=== PATIENT | female | born 1955 | race Caucasian/White ===

== ENCOUNTER 2024-07-26 17:09 | Inpatient (IN) | payer MEDICARE ==
--- NOTE | 2024-07-26 17:47 | ED ---
General Adult HPI - General Chief complaint: Shortness of Breath Stated complaint: CLAUDIA Time Seen by Provider: 07/26/24 17:16 Source: patient Mode of arrival: EMS Limitations: no limitations - History of Present Illness Initial comments: Patient presents to the ED by ambulance for evaluation. Patient was transferred from [facility] ED due to COPD exacerbation and possible CHF. Patient's test results/records were reviewed myself and are pertinent for an elevated troponin, elevated BNP, negative influenza/RSV/COVID, and a chest x- ray that showed "1. No acute focal consolidation or evidence of pneumothorax; 2. Minimal right lung base atelectasis and questionable trace right pleural effusion; and 3. Findings suggestive of COPD.". Patient was treated with albuterol/Atrovent nebs, IV Solu-Medrol, IV Lasix, IV Zofran, IV Rocephin and IV azithromycin at outside hospital ED prior to ambulance transfer. Patient states that she has had increased dyspnea and a productive cough for the past 2 to 3 days. Patient states that her dyspnea has improved with the neb treatments that she was given today. Patient states that she is supposed to be on 2 L of home O2, but she cannot afford it. Patient denies having any pain, fever or chills, headache, chest pain or pressure, hemoptysis, palpitations, dizziness, abdominal pain, nausea/vomiting/diarrhea, bloody or melanotic stool, dysuria or urinary symptoms, decreased urine output, leg or calf swelling or pain, or any other symptoms or complaints. - Related Data Home Medications Medication Instructions Recorded Confirmed Albuterol Sulfate [Albuterol 2 puff INHALATION RT-Q4H 07/26/24 07/26/24 Sulfate Hfa] Escitalopram Oxalate [Lexapro] 10 mg PO HS 07/26/24 07/26/24 Fluticasone/Umeclidin/Vilanter 1 puff INHALATION RT-DAILY 07/26/24 07/26/24 [Trelegy Ellipta 100-62.5-25] HYDROcodone/APAP 7.5-325MG [[place] 1 tab PO TID PRN 07/26/24 07/26/24 7.5-325] Metoprolol Tartrate [Lopressor] 25 mg PO DAILY 07/26/24 07/26/24 busPIRone HCl [Buspar] 5 mg PO TID 07/26/24 07/26/24 lisinopriL [Zestril] 5 mg PO DAILY 07/26/24 07/26/24 predniSONE 40 mg PO DAILY 07/26/24 07/26/24 Allergies Allergy/AdvReac Type Severity Reaction Status Date / Time aspirin AdvReac Nausea & Verified 07/26/24 19:37 Vomiting & Diarrhea Review of Systems ROS Statement: Those systems with pertinent positive or pertinent negative responses have been documented in the HPI. ROS Other: All systems not noted in ROS Statement are negative. Past Medical History Past Medical History: Heart Failure, COPD History of Any Multi-Drug Resistant Organisms: None Reported Past Surgical History: Appendectomy, Section Past Psychological History: No Psychological Hx Reported Smoking Status: Current some day smoker, Former smoker Past Alcohol Use History: None Reported Past Drug Use History: None Reported General Exam Limitations: no limitations General appearance: alert, in no apparent distress Head exam: Present: atraumatic Eye exam: Present: normal appearance ENT exam: Present: mucous membranes moist Neck exam: Present: other (Trachea is in midline) Respiratory exam: Present: normal lung sounds bilaterally, wheezes, decreased breath sounds, prolonged expiratory. Absent: respiratory distress, rales, rhonchi, stridor Cardiovascular Exam: Present: normal rhythm, tachycardia, normal heart sounds, other (Normal radial pulses bilaterally) GI/Abdominal exam: Present: soft. Absent: distended, tenderness, guarding Extremities exam: Present: other (Negative Homans' sign bilaterally). Absent: tenderness, pedal edema, calf tenderness Neurological exam: Present: alert, oriented X3. Absent: motor sensory deficit Psychiatric exam: Present: normal affect Skin exam: Present: warm, dry, normal color Course Vital Signs 07/26/24 07/26/24 07/26/24 17:18 18:02 18:11 Temperature 99.7 F H Pulse Rate 115 H 80 84 Respiratory 22 Rate Blood Pressure 91/65 O2 Sat by Pulse 96 Oximetry 07/26/24 07/26/24 18:31 19:00 Temperature 99.2 F Pulse Rate 100 94 Respiratory 24 23 Rate Blood Pressure 93/54 96/50 O2 Sat by Pulse 97 98 Oximetry - Reevaluation(s) Reevaluation #1: 07/26/24 19:40 Case, H&P, test results and ED/outside hospital ED management were discussed with Dr. Smith. He accepts hospital admission. He has no further recommendations at this time. 07/26/24 19:43 Patient states that her dyspnea has improved with the neb treatments that she has received. Patient denies development of any new symptoms while in the ED. Patient remains alert and breathing comfortably. Patient is aware of her test results, and she agrees with hospital admission at this time. EKG Findings - EKG Comments: EKG Findings:: ED physician interpretation (interpreted by me): Sinus tachycardia, ventricular rate of 111 bpm, no ectopy, normal FL and QRS intervals, normal QT interval, no ST or T wave abnormality Medical Decision Making - Medical Decision Making Was pt. sent in by a medical professional or institution (, PA, CAN CUTTER, urgent care, hospital, or usp...) When possible be specific @ -Yes, patient was transferred from [facility]. Did you speak to anyone other than the patient for history (EMS, parent, family, police, friend...)? What history was obtained from this source @ -History was also obtained from outside hospital transferring physician. Did you review nursing and triage notes (agree or disagree)? Why? @ -I reviewed and agree with nursing and triage notes Were old charts reviewed (outside hosp., previous admission, EMS record, old EKG, old radiological studies, urgent care reports/EKG's, usp records)? Report findings @ -No old charts were reviewed Differential Diagnosis (chest pain, altered mental status, abdominal pain women, abdominal pain men, vaginal bleeding, weakness, fever, dyspnea, syncope, headache, dizziness, GI bleed, back pain, seizure, CVA, palpatations, mental health, musculoskeletal)? @ -Differential Dyspnea: Coronary syndrome, arrhythmia, tamponade, asthma, COPD, CHF, pneumonia, bronchitis, viral illness, pneumothorax, pleural effusion, anemia, neuromuscular, this is not meant to be an all-inclusive list. EKG interpreted by me (3pts min.). @ -As above X-rays interpreted by me (1pt min.). @ -Chest x-ray shows findings consistent with COPD. I agree with the radiologist's interpretation as above. CT interpreted by me (1pt min.). @ -None done U/S interpreted by me (1pt. min.). @ -None done What testing was considered but not performed or refused? (CT, X-rays, U/S, labs)? Why? @ -None What meds were considered but not given or refused? Why? @ -None Did you discuss the management of the patient with other professionals (professionals i.e. , PA, CAN CUTTER, lab, RT, psych nurse, director of social media marketing, trial lawyer, teacher, surveillance sensor officer, director of casework services)? Give summary @ -As above Was smoking cessation discussed for >3mins.? @ -No Was critical care preformed (if so, how long)? @ -Yes, 35 minutes. Were there social determinants of health that impacted care today? How? (Homelessness, low income, unemployed, alcoholism, drug addiction, transporta tion, low edu. Level, literacy, decrease access to med. care, fci, rehab)? @ -No Was there de-escalation of care discussed even if they declined (Discuss DNR or withdrawal of care, Hospice)? DNR status @ -No What co-morbidities impacted this encounter? (DM, HTN, Smoking, COPD, CAD, Cancer, CVA, ARF, Chemo, Hep., AIDS, mental health diagnosis, sleep apnea, morbid obesity)? @ -COPD Was patient admitted / discharged? Hospital course, mention meds given and route, prescriptions, significant lab abnormalities, going to OR and other pertinent info. @ -Patient was treated with neb treatments, IV Solu-Medrol, IV antibiotics and IV Lasix prior to transport to our ED. Patient was also given another neb treatment, as well as a dose of oral aspirin in the ED. Patient's troponin is minimally elevated. Patient is noted to have wheezing on examination, and she has a history of COPD. Patient is also noted to have an elevated BNP, as well as question of pleural effusion on chest x-ray. I suspect that the patient's symptoms are likely due to COPD, and possibly CHF as well. Patient denies dow ving any chest pain. Patient has no acute ischemic findings on EKG. Will admit the patient to the hospital and check serial troponins. Dr. Smith has accepted hospital admission. Patient agrees with this plan. Undiagnosed new problem with uncertain prognosis? @ -No Drug Therapy requiring intensive monitoring for toxicity (Heparin, Nitro, Insulin, Cardizem)? @ -No Were any procedures done? @ -No Diagnosis/symptom? @ -Dyspnea, COPD exacerbation, CHF, elevated troponin Acute, or Chronic, or Acute on Chronic? @ -Default Uncomplicated (without systemic symptoms) or Complicated (systemic symptoms)? @ -Default Side effects of treatment? @ -No Exacerbation, Progression, or Severe Exacerbation? @ -No Poses a threat to life or bodily function? How? (Chest pain, [place], CO, pneumonia, PE, COPD, DKA, ARF, appy, cholecystitis, CVA, Diverticulitis, Homicidal, Suicidal, threat to staff... and all critical care pts) @ -Possibly - Lab Data Result diagrams: 07/26/24 17:58 07/26/24 17:58 Lab Results 07/26/24 07/26/24 07/26/24 Range/Units 17:58 17:58 17:58 WBC 12.4 H (3.8-10.6) k/uL RBC 4.06 (3.80-5.40) m/uL Hgb 13.2 (11.4-16.0) gm/dL Hct 40.7 (34.0-46.0) % MCV 100.0 (80.0-100.0) fL MCH 32.6 (25.0-35.0) pg MCHC 32.6 (31.0-37.0) g/dL RDW 13.0 (11.5-15.5) % Plt Count 372 (150-450) k/uL MPV 6.8 Neutrophils % 95 % Lymphocytes % 3 % Monocytes % 1 % Eosinophils % 1 % Basophils % 0 % Neutrophils # 11.7 H (1.3-7.7) k/uL Lymphocytes # 0.4 L (1.0-4.8) k/uL Monocytes # 0.2 (0-1.0) k/uL Eosinophils # 0.1 (0-0.7) k/uL Basophils # 0.0 (0-0.2) k/uL PT 10.2 (10.0-12.5) sec INR 0.9 (<1.2) APTT 20.4 L (22.0-30.0) sec Sodium 140 (137-145) mmol/L Potassium 4.1 (3.5-5.1) mmol/L Chloride 102 (98-107) mmol/L Carbon Dioxide 26 (22-30) mmol/L Anion Gap 12 mmol/L BUN 19 H (7-17) mg/dL Creatinine 0.71 (0.52-1.04) mg/dL Est GFR (CKD-EPI)AfAm >90 (>60 ml/min/1.73 sqM) Est GFR (CKD-EPI)NonAf 89 (>60 ml/min/1.73 sqM) Glucose 123 H (74-99) mg/dL Calcium 8.9 (8.4-10.2) mg/dL Magnesium 1.6 (1.6-2.3) mg/dL Total Bilirubin 0.5 (0.2-1.3) mg/dL AST 34 (14-36) U/L ALT 27 (4-34) U/L Alkaline Phosphatase 64 (38-126) U/L Troponin I (0.000-0.034) ng/mL NT-Pro-B Natriuret Pep 4690 pg/mL Total Protein 6.4 (6.3-8.2) g/dL Albumin 3.9 (3.5-5.0) g/dL 07/26/24 Range/Units 17:58 WBC (3.8-10.6) k/uL RBC (3.80-5.40) m/uL Hgb (11.4-16.0) gm/dL Hct (34.0-46.0) % MCV (80.0-100.0) fL MCH (25.0-35.0) pg MCHC (31.0-37.0) g/dL RDW (11.5-15.5) % Plt Count (150-450) k/uL MPV Neutrophils % % Lymphocytes % % Monocytes % % Eosinophils % % Basophils % % Neutrophils # (1.3-7.7) k/uL Lymphocytes # (1.0-4.8) k/uL Monocytes # (0-1.0) k/uL Eosinophils # (0-0.7) k/uL Basophils # (0-0.2) k/uL PT (10.0-12.5) sec INR (<1.2) APTT (22.0-30.0) sec Sodium (137-145) mmol/L Potassium (3.5-5.1) mmol/L Chloride (98-107) mmol/L Carbon Dioxide (22-30) mmol/L Anion Gap mmol/L BUN (7-17) mg/dL Creatinine (0.52-1.04) mg/dL Est GFR (CKD-EPI)AfAm (>60 ml/min/1.73 sqM) Est GFR (CKD-EPI)NonAf (>60 ml/min/1.73 sqM) Glucose (74-99) mg/dL Calcium (8.4-10.2) mg/dL Magnesium (1.6-2.3) mg/dL Total Bilirubin (0.2-1.3) mg/dL AST (14-36) U/L ALT (4-34) U/L Alkaline Phosphatase (38-126) U/L Troponin I 0.037 H* (0.000-0.034) ng/mL NT-Pro-B Natriuret Pep pg/mL Total Protein (6.3-8.2) g/dL Albumin (3.5-5.0) g/dL - Radiology Data Chest x-ray: Mild blunting of the right costophrenic sulcus which could reflect trace right pleural effusion versus pleural thickening. Prominence of the interstitial markings which could reflect COPD. Critical Care Time Critical Care Time: Yes Total Critical Care Time: 35 Disposition Clinical Impression: Dyspnea, COPD exacerbation, CHF (congestive heart failure), Elevated troponin Disposition: ADMITTED IP TO THIS [facility] Condition: Stable Is patient prescribed a controlled substance at d/c from ED?: No Referrals: None,Stated [Primary Care Provider] - 1-2 days Time of Disposition: 19:41
[2024-07-26] MEDS: ALBUTEROL NEBULIZED 2.5 MG/3 ML INHALATION STA (18:02)
[2024-07-26 18:06] LABS: Basophils % (A) 0 %; Eosinophils # (A) 0.1 k/uL (0-0.7); Eosinophils % (A) 1 %; HCT 40.7 % (34.0-46.0); HGB 13.2 gm/dL (11.4-16.0); Lymphocytes # (A) 0.4 k/uL (1.0-4.8); Lymphocytes % (A) 3 %; MCH 32.6 pg (25.0-35.0); MCHC 32.6 g/dL (31.0-37.0); Mean Platelet Volume 6.8; Monocytes # (A) 0.2 k/uL (0-1.0); Monocytes % (A) 1 %; Neutrophils # (A) 11.7 k/uL (1.3-7.7); Neutrophils % (A) 95 %; Platelet Count 372 k/uL (150-450); RBC 4.06 m/uL (3.80-5.40); WBC 12.4 k/uL (3.8-10.6)
[2024-07-26 18:21] LABS: INR 0.9 (<1.2); Prothrombin Time 10.2 sec (10.0-12.5)
[2024-07-26 18:26] LABS: ALT 27 U/L (4-34); AST 34 U/L (14-36); African American GFR (CKD) >90 (>60 ml/min/1.73 sqM); Albumin 3.9 g/dL (3.5-5.0); Alkaline Phosphatase 64 U/L (38-126); Anion Gap 12 mmol/L; Blood Urea Nitrogen 19 mg/dL (7-17); Calcium 8.9 mg/dL (8.4-10.2); Carbon Dioxide 26 mmol/L (22-30); Chloride 102 mmol/L (98-107); Glucose 123 mg/dL (74-99); Magnesium 1.6 mg/dL (1.6-2.3); Non-African American GFR(CKD) 89 (>60 ml/min/1.73 sqM); Potassium 4.1 mmol/L (3.5-5.1); Sodium 140 mmol/L (137-145); Total Bilirubin 0.5 mg/dL (0.2-1.3); Total Protein 6.4 g/dL (6.3-8.2)
[2024-07-26 18:33] LABS: NT-Pro-B-Type Natriuretic Pept 4690 pg/mL
--- NOTE | 2024-07-26 18:33 | XR ---
EXAMINATION TYPE: XR chest 1V portable DATE OF EXAM: 07/26/2024 6:23 PM COMPARISON: None available. CLINICAL INDICATION: Female, 69 years old with history of dyspnea; [facility] TECHNIQUE: XR chest 1V portable Frontal view of the chest. FINDINGS: Cardiac silhouette is within normal limits for size. Prominence of the bilateral interstitial markings which is nonspecific. No acute focal consolidation. Mild blunting of the right costophrenic sulcus. No sizable left pleural effusion. PICC line no pneumothorax. No acute osseous abnormality. IMPRESSION: Mild blunting of the right costophrenic sulcus which could reflect trace right pleural effusion versu s pleural thickening. Prominence of the interstitial markings which could reflect COPD. [facility], , 07/26/2024 6:30 PM
[2024-07-26 18:42] LABS: Partial Thromboplastin Time 20.4 sec (22.0-30.0)
[2024-07-26] MEDS: ASPIRIN 81 MG PO STA (19:13)
[2024-07-26] MEDS ORDERED: NALOXONE 0.4 MG/ML 1 ML VIAL IV PRN (19:42)
[2024-07-26] MEDS ORDERED: predniSONE 10 MG TAB PO SCH (22:45)
[2024-07-26] MEDS ORDERED: IPRATROPIUM-ALBUTEROL 3 ML NEB INHALATION PRN (22:56)
[2024-07-26] MEDS: HYDROcodone/APAP 7.5-325MG 1 EACH TAB PO PRN (23:38)
[2024-07-26] MEDS: busPIRone HCl 5 MG TAB PO SCH (23:40)
[2024-07-26] MEDS: ENOXAPARIN 40 MG/0.4 ML SYRINGE SQ SCH (23:41)
[2024-07-26] MEDS: ESCITALOPRAM 10 MG TAB PO SCH (23:41)
--- NOTE | 2024-07-27 01:30 | P.HPIM ---
History of Present Illness H&P Date: 07/26/24 Patient is a 69-year-old female with PMH of COPD not on home oxygen, congestive heart failure is a transfer patient from [facility] emergency department for further evaluation and management for COPD exacerbation and possible congestive heart failure. Patient called EMS after she felt extremely short of breath with some chest tightness this afternoon. Patient was taken to the [facility] where she had received breathing treatments with DuoNebs as well as IV Lasix and IV antibiotics (Rocephin and azithromycin). Patient is feeling a lot better after receiving her breathing treatments. Patient stated that she has been experiencing shortness of breath from past 2 days. It has been getting progressively worse associated cough. Patient states that she has been producing about 2 teaspoonful of clear-colored sputum. She has also been feeling fatigued along with mild fever and chills. She denies sick contact or recent flulike symptoms. Patient has also been using her home medication albuterol inhaler every 2 hours from last couple of days. She is a lso maintained on Trelegy which she takes once daily. Patient has been evaluated by chronometer adjuster in the past who has recommended 2 L of home oxygen. Patient is currently not using oxygen at home because she does not have a coverage through her insurance. Patient denies hospitalization because of COPD exacerbation in the past 12 months. Her last admission due to COPD exacerbation was back in 2020 and she had to be admitted in the ICU (did not get intubated). Patient has also been feeling slightly nauseous but no vomiting so far. She has also been endorsing dizziness since the onset of her symptoms from last 2 days. Dizziness is worse with changing her position especially getting up from sitting position. Patient denies any previous episodes of dizziness. Denies any loss of consciousness or fall or injury to the head. Denies chest discomfort and LE swelling or pain. Patient denies history of CAD/CVA and is currently not on any blood thinner. Denies any recent travel or hospitalization. Denies any swelling of legs recently. Laboratory data: WBC 12.4, hemoglobin 13.2, MCV 100, platelet count 372, PT 10.2, INR 0.9, ABG 10.4, potassium 140, potassium 4.1, chloride 102, bicarb 26, BUN 90, creatinine 0.71, glucose 123, magnesium 1.6, total bili 0.5, AST 34, ALT 27, ALP 64, troponin I 0.037, NT proBNP 4690 Images: Chest x-ray done in the ED interpreted apparently shows trace right pleural effusion with presence of diffuse interstitial markings,consistent with COPD changes. EKG done in the ED interpreted independently shows sinus tachycardia with ventricular rate of 111 bpm. MS interval 142 ms. QRS duration 86 ms. QTc 384 ms. Poor R wave progression noted. Vitals: Vital signs on arrival: Temperature 99.7 F, pulse rate 115, respiratory 22, blood pressure 91/65, oxygen saturation 96% on 4 L via nasal cannula Review of systems: Pertinent positives and negatives as discussed in HPI, a complete review of systems was performed and all other systems are negative. Social history: Tobacco: Former smoker quit 2018. Significant past smoking history. 1 pack/week x 40 years Alcohol: None Recreational drugs: None Travel: None Occupation: None restaurant area manager Family History: Father of lung cancer Physical examination: Vital signs reviewed General: non toxic, no distress, appears older than stated age, underweight Derm: no unusual rashes/lesions, warm Head: atraumatic, normocephalic, symmetric Eyes: EOMI, anicteric sclera, pupils equal round reactive to light ENT: Nose and ears atraumatic Neck: No cervical lymphadenopathy, trachea midline, supple Mouth: no lip lesion, mucus membranes moist Cardiovascular: S1S2 reg, no murmur, positive dorsalis pedis pulse bilateral, no edema Lungs: Diffuse expiratory wheezing wih poor air entry darell, no rhonchi, no rales, no accessory muscle use Abdominal: soft, nontender to palpation, no guarding Ext: muscle strength 5 out of 5 in all 4 extremities grossly, no gross muscle atrophy, no contractures, Neuro: CN II-XI grossly intact, no gross focal neuro deficits Psych: Alert, oriented, appropriate affect Assessment/Plan: Patient is a 69-year-old female with PMH of COPD not on home oxygen, congestive heart failure is a transfer patient from [facility] emergency department who was brought to the [facility] ED for further evaluation and management for COPD exacerbation and possible congestive heart failure. Case was discussed with the Emergency Room provider and decision was made to admit the patient for COPD exacerbation and suspected congestive heart failure. #COPD exacerbation #Acute hypoxemic respiratory failure Patient received a dose of IV Solu-Medrol prior to transfer Resume home Prednisone 40mg po daily DuoNebs scheduled and [id number] Continue with oxygen therapy as needed with a goal of keeping SpO2 between 88 to 92% Ordered ABG Patient received dose of iv Rocephin and azithromycin at [facility] ED Patient does not require antibiotic at this time, low suspicion for infection Order procalcitonin Continue to monitor CBC and correlate with clinical findings #History of congestive heart failure, patient not in exacerbation No previous report of echocardiogram Patient received dose of Lasix before presenting here Continue cardiac telemetry Resume metoprolol 25 mg p.o. 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 at bedtime and buspirone 5 mg p.o. 3 times daily DVT prophylaxis: Lovenox subcu 40 mg GI prophylaxis: None F: None E: Replete as needed N: Heart healthy diet A: Patient ambulatory at baseline The patient is admitted with an anticipated less than than 2 midnight stay for evaluation of COPD exacerbation CODE STATUS: Full code Discussed with: Patient Anticipated discharge place: Pending clinical course Dictation was produced using [employer] dictation software. Please excuse any grammatical, word or spelling errors. Past Medical History Past Medical History: Heart Failure, COPD History of Any Multi-Drug Resistant Organisms: None Reported Past Surgical History: Appendectomy, Section Past Psychological History: No Psychological Hx Reported Smoking Status: Current some day smoker, Former smoker Past Alcohol Use History: None Reported Past Drug Use History: None Reported Medications and Allergies Home Medications Medication Instructions Recorded Confirmed Type Albuterol Sulfate [Albuterol 2 puff INHALATION RT-Q4H 07/26/24 07/26/24 History Sulfate Hfa] Escitalopram Oxalate [Lexapro] 10 mg PO HS 07/26/24 07/26/24 History Fluticasone/Umeclidin/Vilanter 1 puff INHALATION RT-DAILY 07/26/24 07/26/24 History [Trelegy Ellipta 100-62.5-25] HYDROcodone/APAP 7.5-325MG [[place] 1 tab PO TID PRN 07/26/24 07/26/24 History 7.5-325] Metoprolol Tartrate [Lopressor] 25 mg PO DAILY 07/26/24 07/26/24 History busPIRone HCl [Buspar] 5 mg PO TID 07/26/24 07/26/24 History lisinopriL [Zestril] 5 mg PO DAILY 07/26/24 07/26/24 History predniSONE 40 mg PO DAILY 07/26/24 07/26/24 History Allergies Allergy/AdvReac Type Severity Reaction Status Date / Time aspirin AdvReac Nausea & Verified 07/26/24 19:37 Vomiting & Diarrhea Physical Exam Vitals: Vital Signs Temp Pulse Resp BP Pulse Ox 07/26/24 21:00 98.9 F 96 20 100/58 97 07/26/24 19:00 94 23 96/50 98 07/26/24 18:31 99.2 F 100 24 93/54 97 07/26/24 18:11 84 07/26/24 18:02 80 07/26/24 17:18 99.7 F H 115 H 22 91/65 96 Intake and Output 07/26/24 07/26/24 07/26/24 06:59 14:59 22:59 Other: Weight 51.71 kg Results CBC & Chem 7: 07/26/24 17:58 07/26/24 17:58 Labs: Abnormal Lab Results - Last 24 Hours (Table) 07/26/24 07/26/24 07/26/24 Range/Units 17:58 17:58 17:58 WBC 12.4 H (3.8-10.6) k/uL Neutrophils # 11.7 H (1.3-7.7) k/uL Lymphocytes # 0.4 L (1.0-4.8) k/uL APTT 20.4 L (22.0-30.0) sec BUN 19 H (7-17) mg/dL Glucose 123 H (74-99) mg/dL Troponin I (0.000-0.034) ng/mL 07/26/24 Range/Units 17:58 WBC (3.8-10.6) k/uL Neutrophils # (1.3-7.7) k/uL Lymphocytes # (1.0-4.8) k/uL APTT (22.0-30.0) sec BUN (7-17) mg/dL Glucose (74-99) mg/dL Troponin I 0.037 H* (0.000-0.034) ng/mL
[2024-07-27 06:17] LABS: Basophils % (A) 0 %; Eosinophils % (A) 0 %; HCT 40.4 % (34.0-46.0); HGB 13.1 gm/dL (11.4-16.0); Lymphocytes # (A) 0.9 k/uL (1.0-4.8); Lymphocytes % (A) 9 %; MCH 32.5 pg (25.0-35.0); MCHC 32.4 g/dL (31.0-37.0); MCV 100.1 fL (80.0-100.0); Mean Platelet Volume 6.7; Monocytes # (A) 0.5 k/uL (0-1.0); Monocytes % (A) 5 %; Neutrophils # (A) 8.3 k/uL (1.3-7.7); Neutrophils % (A) 85 %; Platelet Count 389 k/uL (150-450); RBC 4.04 m/uL (3.80-5.40); WBC 9.8 k/uL (3.8-10.6)
[2024-07-27 07:15] LABS: Glucose,Whole Blood 109 mg/dL (70-110)
[2024-07-27] MEDS: INSULIN ASPART (NovoLOG) 100 UNIT/ML VIAL SQ SCH (07:15)
[2024-07-27 08:04] LABS: ALT 32 U/L (4-34); AST 35 U/L (14-36); African American GFR (CKD) >90 (>60 ml/min/1.73 sqM); Albumin 3.9 g/dL (3.5-5.0); Alkaline Phosphatase 64 U/L (38-126); Anion Gap 7 mmol/L; Blood Urea Nitrogen 22 mg/dL (7-17); Calcium 9.3 mg/dL (8.4-10.2); Carbon Dioxide 31 mmol/L (22-30); Chloride 98 mmol/L (98-107); Glucose 102 mg/dL (74-99); Non-African American GFR(CKD) 88 (>60 ml/min/1.73 sqM); Potassium 4.9 mmol/L (3.5-5.1); Sodium 136 mmol/L (137-145); Total Bilirubin 0.4 mg/dL (0.2-1.3); Total Protein 6.5 g/dL (6.3-8.2)
[2024-07-27] MEDS: IPRATROPIUM-ALBUTEROL 3 ML NEB INHALATION SCH ×2 (08:08→20:41)
[2024-07-27] MEDS: METOPROLOL TARTRATE 25 MG TAB PO SCH (08:50)
[2024-07-27] MEDS: predniSONE 20 MG TAB PO SCH (08:50)
[2024-07-27 11:38] LABS: Glucose,Whole Blood 116 mg/dL (70-110)
--- NOTE | 2024-07-27 13:34 | P.PN ---
Subjective Progress Note Date: 07/27/24 Hospital Course: Patient is a 69-year-old female with PMH of COPD not on home oxygen, congestive heart failure is a transfer patient from [facility] emergency department for further evaluation and management for COPD exacerbation and possible congestive heart failure. Patient called EMS after she felt extremely short of breath with some chest tightness this afternoon. Patient was taken to the [facility] where she had received breathing tr eatments with DuoNebs as well as IV Lasix and IV antibiotics (Rocephin and azithromycin). Patient is feeling a lot better after receiving her breathing treatments. Patient stated that she has been experiencing shortness of breath from past 2 days. It has been getting progressively worse associated cough. Patient states that she has been producing about 2 teaspoonful of clear-colored sputum. She has also been feeling fatigued along with mild fever and chills. She denies sick contact or recent flulike symptoms. Patient has also been using her home medication albuterol inhaler every 2 hours from last couple of days. She is also maintained on Trelegy which she takes once daily. Patient has been evaluated by transplanter in the past who has recommended 2 L of home oxygen. Patient is currently not using oxygen at home because she does not have a coverage through her insurance. Patient denies hospitalization because of COPD exacerbation in the past 12 month s. Her last admission due to COPD exacerbation was back in 2020 and she had to be admitted in the ICU (did not get intubated). Patient has also been feeling slightly nauseous but no vomiting so far. She has also been endorsing dizziness since the onset of her symptoms from last 2 days. Dizziness is worse with changing her position especially getting up from sitting position. Patient denies any previous episodes of dizziness. Denies any loss of consciousness or fall or injury to the head. Denies chest discomfort and LE swelling or pain. Patient denies history of CAD/CVA and is currently not on any blood thinner. Denies any recent travel or hospitalization. Denies any swelling of legs recently. Laboratory data: WBC 12.4, hemoglobin 13.2, MCV 100, platelet count 372, PT 10.2, INR 0.9, ABG 10.4, potassium 140, potassium 4.1, chloride 102, bicarb 26, BUN 90, creatinine 0.71, glucose 123, magnesium 1.6, total bili 0.5, AST 34, ALT 27, ALP 64, troponin I 0.037, NT proBNP 4690 Images: Chest x-ray done in the ED interpreted apparently shows trace right pleural effusion with presence of diffuse interstitial markings, consistent with COPD changes. EKG done in the ED interpreted independently shows sinus tachycardia with ventricular rate of 111 bpm. CA interval 142 ms. QRS duration 86 ms. QTc 384 ms. Poor R wave progression noted. Vitals: Vital signs on arrival: Temperature 99.7 F, pulse rate 115, respiratory 22, blood pressure 91/65, oxygen saturation 96% on 4 L via nasal cannula Subjective: Patient seen and examined at bedside. No acute events overnight. Pertinent positives and negatives as discussed above, a complete review of systems was performed and all other systems are negative. Vitals: Signs Reviewed Physical Exam: General: nontoxic, no distress, appears at stated age Derm: warm, dry, intact Head: atraumatic, normocephalic, symmetric Eyes: EOMI, anicteric sclera Mouth: no lip lesion, mucus membranes moist Cardiovascular: S1 S2 reg, no murmur, rubs, or gallops Lungs: diffuse expiratory wheezing b/l, no rhonchi, no rales, no accessory muscle use Abdominal: soft, non-tender to palpataion, no appreciable organomegaly Extremities: no gross muscle atrophy, no edema, no contractures Neuro: Alert, Oriented, CNII-XII grossly intact, gait normal Psych: well appearing, appropriate affect Data Received Today: Pertinent Labs: WBC 9.8, Hgb 13.1, sodium 136, carbon dioxide 31, BUN 22, creatinine 0.72, glucose 102 Imaging: echo pending Assessment and Plan: Patient is a 69-year-old female with PMH of COPD not on home oxygen, congestive heart failure is a transfer patient from [facility] emergency department who was brought to the [facility] ED for further evaluation and management f or COPD exacerbation and possible congestive heart failure. Case was discussed with the Emergency Room provider and decision was made to admit the patient for COPD exacerbation and suspected congestive heart failure. #COPD exacerbation #Acute hypoxemic respiratory failure Patient received a dose of IV Solu-Medrol prior to transfer Resume home Prednisone 40mg po daily (day 2) On 4L Wean down 02 DuoNebs scheduled and [id number] Continue with oxygen therapy as needed with a goal of keeping SpO2 between 88 to 92% Ordered ABG, pt denied Patient received dose of iv Rocephin and azithromycin at [facility] ED Patient does not require antibiotic at this time, low suspicion for infection procalcitonin 0.19 negative influenza/RSV/COVID before transferring from [facility] Continue to monitor CBC and correlate with clinical findings #History of congestive heart failure, patient not in exacerbation No previous report of echocardiogram Patient received dose of Lasix before presenting here Continue cardiac telemetry Resume metoprolol 25 mg p.o. daily Echocardiogram pending #Type II [place] secondary to COPD exacerbation Troponin trending down from 0.037 ---> 0.030 Continue to trend troponin #Leukocytosis likely reactive to COPD exacerbation WBC 12.4 Continue monitor CBC #Hyperglycemia Serum glucose 123 Accu-Cheks insulin scale insulin Order HbA1c Chronic conditions: Hypertension: Resume lisinopril when SBP >110, hold for now Anxiety: Resume Lexapro 10 mg p.o. at bedtime and buspirone 5 mg p.o. 3 times daily DVT prophylaxis: Lovenox subcu 40 mg GI prophylaxis: None F: None E: Replete as needed N: Heart healthy diet A: Patient ambulatory at baseline DVT ppx: Lovenox 40 SQ daily Code status: FULL CODE Anticipated discharge place: Pending Clinical Course Anticipated discharge time: Pending Clinical Course Storm Reich MD PGY-1 IM Dictation was produced using [employer] dictation software. please excuse any grammatical, word or spelling errors. I saw and evaluated the patient during the leiva and critical portions of this encounter, and discussed the case in detail with the resident author of this n ote, I agree with the Assessment and Plan, and my changes, if any, are highlighted in blue. Objective - Vital Signs Vital signs: Vital Signs Temp 98.9 F 07/26/24 23:00 Pulse 99 07/27/24 03:30 Resp 18 07/27/24 03:30 BP 99/66 07/27/24 03:30 Pulse Ox 99 07/27/24 03:30 FiO2 Intake & Output 07/26/24 07/26/24 07/27/24 06:59 18:59 06:59 Weight 51.71 kg - Labs CBC & Chem 7: 07/27/24 05:58 07/27/24 05:58 Labs: Abnormal Lab Results - Last 24 Hours (Table) 07/26/24 07/26/24 07/26/24 Range/Units 17:58 17:58 17:58 WBC 12.4 H (3.8-10.6) k/uL Neutrophils # 11.7 H (1.3-7.7) k/uL Lymphocytes # 0.4 L (1.0-4.8) k/uL APTT 20.4 L (22.0-30.0) sec BUN 19 H (7-17) mg/dL Glucose 123 H (74-99) mg/dL Troponin I (0.000-0.034) ng/mL 07/26/24 Range/Units 17:58 WBC (3.8-10.6) k/uL Neutrophils # (1.3-7.7) k/uL Lymphocytes # (1.0-4.8) k/uL APTT (22.0-30.0) sec BUN (7-17) mg/dL Glucose (74-99) mg/dL Troponin I 0.037 H* (0.000-0.034) ng/mL
[2024-07-27] MEDS ORDERED: ALBUTEROL NEB (CONC) 2.5 MG/0.5 ML INHALATION PRN (16:12)
[2024-07-27 16:36] LABS: Glucose,Whole Blood 130 mg/dL (70-110)
[2024-07-27 20:20] LABS: Glucose,Whole Blood 116 mg/dL (70-110)
[2024-07-28 04:57] LABS: Basophils % (A) 0 %; Eosinophils % (A) 0 %; HCT 36.2 % (34.0-46.0); HGB 11.8 gm/dL (11.4-16.0); Lymphocytes # (A) 1.7 k/uL (1.0-4.8); Lymphocytes % (A) 19 %; MCH 32.4 pg (25.0-35.0); MCHC 32.5 g/dL (31.0-37.0); MCV 99.5 fL (80.0-100.0); Mean Platelet Volume 7.8; Monocytes # (A) 0.7 k/uL (0-1.0); Monocytes % (A) 8 %; Neutrophils # (A) 6.4 k/uL (1.3-7.7); Neutrophils % (A) 71 %; Platelet Count 407 k/uL (150-450); RBC 3.63 m/uL (3.80-5.40); RDW 13.2 % (11.5-15.5); WBC 8.9 k/uL (3.8-10.6)
[2024-07-28 06:16] LABS: ALT 37 U/L (4-34); AST 40 U/L (14-36); African American GFR (CKD) >90 (>60 ml/min/1.73 sqM); Albumin 3.5 g/dL (3.5-5.0); Albumin/Globulin Ratio 1.5; Alkaline Phosphatase 54 U/L (38-126); Anion Gap 4 mmol/L; Blood Urea Nitrogen 23 mg/dL (7-17); Carbon Dioxide 32 mmol/L (22-30); Chloride 97 mmol/L (98-107); Globulin 2.4 g/dL; Glucose 93 mg/dL (74-99); Non-African American GFR(CKD) 82 (>60 ml/min/1.73 sqM); Potassium 4.4 mmol/L (3.5-5.1); Sodium 133 mmol/L (137-145); Total Bilirubin 0.3 mg/dL (0.2-1.3); Total Protein 5.9 g/dL (6.3-8.2)
[2024-07-28 06:24] LABS: Glucose,Whole Blood 91 mg/dL (70-110)
[2024-07-28] MEDS: IBUPROFEN 800 MG TAB PO PRN (09:19)
[2024-07-28 11:51] LABS: Glucose,Whole Blood 100 mg/dL (70-110)
--- NOTE | 2024-07-28 13:27 | CA ---
Transthoracic Echo Report Name: Daniella Pereira Age: 69 Gender: F : 1955 Exam Date: 07/28/2024 10:25 Exam Location: [facility] Ht (in): 66 Wt (lb): 114 Ordering Physician: Francisco Javier Gonzales MD Attending/Referring Phys: Bow Repairer [employer] Karen Duff, TERRY Procedure CPT: Indications: Hx of CHF Cardiac Hx: limited study due to pt refused Technical Quality: Fair, Very technically difficult study, pt refused Contrast 1: Total Dose (mL): Contrast 2: Total Dose (mL): MEASUREMENTS (Male / Female) Normal Values 2D ECHO LV Diastolic Diameter PLAX 4.7 cm 4.2 - 5.9 / 3.9 - 5.3 cm LV Systolic Diameter PLAX 3.7 cm IVS Diastolic Thickness 1.1 cm 0.6 - 1.0 / 0.6 - 0.9 cm LVPW Diastolic Thickness 0.9 cm 0.6 - 1.0 / 0.6 - 0.9 cm LV Relative Wall Thickness 0.4 RV Internal Dim ED PLAX 3.2 cm LVOT Diameter 1.6 cm Aortic Root Diameter 3.0 cm LA Systolic Diameter LX 2.4 cm 3.0 - 4.0 / 2.7 - 3.8 cm FINDINGS Left Ventricle Left ventricular ejection fraction is estimated at 35-40 %. Mildly increased septal wall thickness. Right Ventricle Right Atrium Left Atrium Normal left atrial size. Mitral Valve Aortic Valve Tricuspid Valve Pulmonic Valve Pericardium Aorta Normal size aortic root and proximal ascending aorta. CONCLUSIONS Limited study patient was not cooperative apparently she asked the accounting technician to stop scanning. Ejection fraction is about 40% on available views which are mostly parasternal long axis views. Cannot infer much from the study Previewed by: Dr. Louie Jacobs MD (Electronically Signed) Final Date: 28 July 2024 13:26
[2024-07-28 15:02] VITALS: BMI 17.8
[2024-07-28 16:47] LABS: Glucose,Whole Blood 126 mg/dL (70-110)
--- NOTE | 2024-07-28 17:24 | P.PN ---
Subjective Progress Note Date: 07/28/24 Hospital Course: Patient is a 69-year-old female with PMH of COPD not on home oxygen, congestive heart failure is a transfer patient from [facility] emergency department for further evaluation and management for COPD exacerbation and possible congestive heart failure. Patient called EMS after she felt extremely short of breath with some chest tightness this afternoon. Patient was taken to the [facility] where she had received breathing tr eatments with DuoNebs as well as IV Lasix and IV antibiotics (Rocephin and azithromycin). Patient is feeling a lot better after receiving her breathing treatments. Patient stated that she has been experiencing shortness of breath from past 2 days. It has been getting progressively worse associated cough. Patient states that she has been producing about 2 teaspoonful of clear-colored sputum. She has also been feeling fatigued along with mild fever and chills. She denies sick contact or recent flulike symptoms. Patient has also been using her home medication albuterol inhaler every 2 hours from last couple of days. She is also maintained on Trelegy which she takes once daily. Patient has been evaluated by crisis worker in the past who has recommended 2 L of home oxygen. Patient is currently not using oxygen at home because she does not have a coverage through her insurance. Patient denies hospitalization because of COPD exacerbation in the past 12 month s. Her last admission due to COPD exacerbation was back in 2020 and she had to be admitted in the ICU (did not get intubated). Patient has also been feeling slightly nauseous but no vomiting so far. She has also been endorsing dizziness since the onset of her symptoms from last 2 days. Dizziness is worse with changing her position especially getting up from sitting position. Patient denies any previous episodes of dizziness. Denies any loss of consciousness or fall or injury to the head. Denies chest discomfort and LE swelling or pain. Patient denies history of CAD/CVA and is currently not on any blood thinner. Denies any recent travel or hospitalization. Denies any swelling of legs recently. Laboratory data: WBC 12.4, hemoglobin 13.2, MCV 100, platelet count 372, PT 10.2, INR 0.9, ABG 10.4, potassium 140, potassium 4.1, chloride 102, bicarb 26, BUN 90, creatinine 0.71, glucose 123, magnesium 1.6, total bili 0.5, AST 34, ALT 27, ALP 64, troponin I 0.037, NT proBNP 4690 Images: Chest x-ray done in the ED interpreted apparently shows trace right pleural effusion with presence of diffuse interstitial markings, consistent with COPD changes. EKG done in the ED interpreted independently shows sinus tachycardia with ventricular rate of 111 bpm. AK interval 142 ms. QRS duration 86 ms. QTc 384 ms. Poor R wave progression noted. Vitals: Vital signs on arrival: Temperature 99.7 F, pulse rate 115, respiratory 22, blood pressure 91/65, oxygen saturation 96% on 4 L via nasal cannula Subjective: Patient seen and examined at bedside. No acute events overnight. Patient reports of a headache. She states she is ready to go home. Pertinent positives and negatives as discussed above, a complete review of systems was performed and all other systems are negative. Vitals: Signs Reviewed Physical Exam: General: nontoxic, no distress, appears at stated age Derm: warm, dry, intact Head: atraumatic, normocephalic, symmetric Eyes: EOMI, anicteric sclera Mouth: no lip lesion, mucus membranes moist Cardiovascular: S1 S2 reg, no murmur, rubs, or gallops Lungs: Mild diffuse expiratory wheezing b/l, no rhonchi, no rales, no accessory muscle use Abdominal: soft, non-tender to palpataion, no appreciable organomegaly Extremities: no gross muscle atrophy, no edema, no contractures Neuro: Alert, Oriented, CNII-XII grossly intact, gait normal Psych: well appearing, appropriate affect Data Received Today: Pertinent Labs: WBC 9.8, Hgb 13.1, sodium 136, carbon dioxide 31, BUN 22, creatinine 0.72, glucose 102 Imaging: echo pending Assessment and Plan: Patient is a 69-year-old female with PMH of COPD not on home oxygen, congestive heart failure is a transfer patient from [facility] emergency department who was brought to the [facility] ED for further evaluation and management for COPD exacerbation and possible congestive heart failure. #COPD exacerbation #Acute hypoxemic respiratory failure Patient received a dose of IV Solu-Medrol prior to transfer Resume home Prednisone 40mg po daily (day 3) On 4L Wean down 02 DuoNebs scheduled and [id number] Patient was on 4 L nasal cannula this morning, try to wean down on 2. Continue with oxygen therapy as needed with a goal of keeping SpO2 between 88 to 92% Ordered ABG, pt denied Patient received dose of iv Rocephin and azithromycin at [facility] ED Patient does not require antibiotic at this time, low suspicion for infection procalcitonin 0.19 negative influenza/RSV/COVID before transferring from [facility] Continue to monitor CBC and correlate with clinical findings Discussed with community case manager regarding home O2 status, patient in fact does have home oxygen #History of congestive heart failure, patient not in exacerbation No previous report of echocardiogram Patient received dose of Lasix before presenting here Continue cardiac telemetry Resume metoprolol 25 mg p.o. daily Echocardiogram pending #Type II [place] secondary to COPD exacerbation Troponin trending down from 0.037 ---> 0.030 Continue to trend troponin #Leukocytosis likely reactive to COPD exacerbation WBC 12.4 Continue monitor CBC #Hyperglycemia Serum glucose 123 Accu-Cheks insulin scale insulin Order HbA1c Chronic conditions: Hypertension: Resume lisinopril when SBP >110, hold for now Anxiety: Resume Lexapro 10 mg p.o. at bedtime and buspirone 5 mg p.o. 3 times daily DVT prophylaxis: Lovenox subcu 40 mg GI prophylaxis: None F: None E: Replete as needed N: Heart healthy diet A: Patient ambulatory at baseline DVT ppx: Lovenox 40 SQ daily Code status: FULL CODE Anticipated discharge place: Home Anticipated discharge time: Likely tomorrow Storm Reich MD PGY-1 IM Dictation was produced using [employer] dictation software. please excuse any grammatical, word or spelling errors. I saw and evaluated the patient during the leiva and critical portions of this encounter, and discussed the case in detail with the resident author of this note, I agree with the Assessment and Plan, and my changes, if any, are highlighted in blue. Objective - Vital Signs Vital signs: Vital Signs Temp 98.3 F 07/28/24 13:00 Pulse 95 07/28/24 16:56 Resp 17 07/28/24 13:00 BP 111/70 07/28/24 13:00 Pulse Ox 97 07/28/24 13:00 FiO2 Intake & Output 07/27/24 07/28/24 07/28/24 18:59 06:59 18:59 Intake Total 600 Balance 600 Weight 51.71 kg 50 kg 50 kg Intake: Oral 600 Other: # Voids 2 3 - Labs CBC & Chem 7: 07/28/24 03:05 07/28/24 03:05 Labs: Abnormal Lab Results - Last 24 Hours (Table) 07/27/24 07/28/24 07/28/24 Range/Units 20:19 03:05 03:05 RBC 3.63 L (3.80-5.40) m/uL Sodium 133 L (137-145) mmol/L Chloride 97 L (98-107) mmol/L Carbon Dioxide 32 H (22-30) mmol/L BUN 23 H (7-17) mg/dL POC Glucose (mg/dL) 116 H (70-110) mg/dL AST 40 H (14-36) U/L ALT 37 H (4-34) U/L Total Protein 5.9 L (6.3-8.2) g/dL 07/28/24 Range/Units 16:46 RBC (3.80-5.40) m/uL Sodium (137-145) mmol/L Chloride (98-107) mmol/L Carbon Dioxide (22-30) mmol/L BUN (7-17) mg/dL POC Glucose (mg/dL) 126 H (70-110) mg/dL AST (14-36) U/L ALT (4-34) U/L Total Protein (6.3-8.2) g/dL
[2024-07-28] MEDS ORDERED: ALBUTEROL NEBULIZED 2.5 MG/3 ML INHALATION PRN (20:01)
[2024-07-28 21:04] LABS: Glucose,Whole Blood 139 mg/dL (70-110)
[2024-07-29 06:33] LABS: Glucose,Whole Blood 81 mg/dL (70-110)
[2024-07-29 07:43] LABS: Basophils % (A) 0 %; Eosinophils # (A) 0.1 k/uL (0-0.7); Eosinophils % (A) 1 %; HCT 39.7 % (34.0-46.0); HGB 12.4 gm/dL (11.4-16.0); Hypochromasia Slight; Lymphocytes # (A) 2.1 k/uL (1.0-4.8); Lymphocytes % (A) 22 %; MCH 31.6 pg (25.0-35.0); MCHC 31.3 g/dL (31.0-37.0); Mean Platelet Volume 6.5; Monocytes # (A) 0.6 k/uL (0-1.0); Monocytes % (A) 6 %; Neutrophils # (A) 6.8 k/uL (1.3-7.7); Neutrophils % (A) 69 %; Platelet Count 434 k/uL (150-450); RBC 3.93 m/uL (3.80-5.40); RDW 12.6 % (11.5-15.5); WBC 9.9 k/uL (3.8-10.6)
[2024-07-29 07:49] VITALS: RESP 19; TEMP 97.9
[2024-07-29 07:52] LABS: ALT 47 U/L (4-34); AST 43 U/L (14-36); African American GFR (CKD) >90 (>60 ml/min/1.73 sqM); Albumin 3.7 g/dL (3.5-5.0); Albumin/Globulin Ratio 1.5; Alkaline Phosphatase 52 U/L (38-126); Anion Gap 3 mmol/L; Blood Urea Nitrogen 23 mg/dL (7-17); Calcium 9.4 mg/dL (8.4-10.2); Carbon Dioxide 39 mmol/L (22-30); Chloride 95 mmol/L (98-107); Globulin 2.4 g/dL; Glucose 91 mg/dL (74-99); Magnesium 2.2 mg/dL (1.6-2.3); Non-African American GFR(CKD) 85 (>60 ml/min/1.73 sqM); Potassium 4.4 mmol/L (3.5-5.1); Sodium 137 mmol/L (137-145); Total Bilirubin 0.4 mg/dL (0.2-1.3); Total Protein 6.1 g/dL (6.3-8.2)
[2024-07-29 09:15] VITALS: BP 105/57; PULSE 101
[2024-07-29 11:20] LABS: Glucose,Whole Blood 98 mg/dL (70-110)
--- NOTE | 2024-07-29 14:03 | P.DS ---
Providers Date of admission: 07/26/24 19:43 Discharge Diagnosis: Acute exacerbation of COPD Acute hypoxic respiratory failure History of cysts CHF, not in exacerbation Type II NSTEMI secondary to COPD exacerbation Leukocytosis Hyperglycemia Hypertension Anxiety Hospital Course: Patient is a 69-year-old female with PMH of COPD not on home oxygen, congestive heart failure is a transfer patient from [facility] emergency department for further evaluation and management for COPD exacerbation and possible congestive heart failure. Patient called EMS after she felt extremely short of breath with some chest tightness this afternoon. Patient was taken to the [facility] where she had received breathing treatments with DuoNebs as well as IV Lasix and IV antibiotics (Rocephin and azithromycin). Patient is feeling a lot better after receiving her breathing treatments. Patient stated that she has been experiencing shortness of breath from past 2 days. It has been getting progressively worse associated cough. Patient states that she has been producing about 2 teaspoonful of clear-colored sputum. She has also been feeling fatigued along with mild fever and chills. She denies sick contact or recent flulike symptoms. Patient has also been using her home medication albuterol inhaler every 2 hours from last couple of days. She is also maintained on Trelegy which she takes once daily. Patient has been evaluated by hooker off in the past who has recommended 2 L of home oxygen. Patient is currently not using oxygen at home because she does not have a coverage through her insurance. Patient denies hospitalization because of COPD exacerbation in the past 12 months. Her last admission due to COPD exacerbation was back in 2020 and she had to be admitted in the ICU (did not get intubated). Patient has also been feeling slightly nauseous but no vomiting so far. She has also been endorsing dizziness since the onset of her symptoms from last 2 days. Dizziness is worse with changing her position especially getting up from sitting position. Patient denies any previous episodes of dizziness. Denies any loss of consciousness or fall or injury to the head. Denies chest discomfort and LE swelling or pain. Patient denies history of CAD/CVA and is currently not on any blood thinner. Denies any recent travel or hospitalization. Denies any swelling of legs recently. Laboratory data: WBC 12.4, hemoglobin 13.2, MCV 100, platelet count 372, PT 10.2, INR 0.9, ABG 10.4, potassium 140, potassium 4.1, chloride 102, bicarb 26, BUN 90, creatinine 0.71, glucose 123, magnesium 1.6, total bili 0.5, AST 34, ALT 27, ALP 64, troponin I 0.037, NT proBNP 4690 Images: Chest x-ray done in the ED interpreted apparently shows trace right pleural effusion with presence of diffuse interstitial markings, consistent with COPD changes. EKG done in the ED interpreted independently shows sinus tachycardia with ventricular rate of 111 bpm. [place] interval 142 ms. QRS duration 86 ms. QTc 384 ms. Poor R wave progression noted. Patient was admitted to internal medicine service for further evaluation for acute exacerbation of COPD. While admitted patient was on proper breathing treatment for her exacerbation. Was given steroids to better control her symptoms. She will be sent home with 2 L home oxygen. Patient's breathing has improved significantly. Patient discharged oral steroids to finish off course. Patient is to follow-up with PCP. Patient be discharged home. Vital signs reviewed and stable. Physical examination: Vital signs reviewed General: non toxic, no distress, appears at stated age, normal weight Derm: no unusual rashes/lesions, warm Head: atraumatic, normocephalic, symmetric Eyes: EOMI, anicteric sclera, pupils equal round reactive to light ENT: Nose and ears atraumatic Neck: No cervical lymphadenopathy, trachea midline, supple Mouth: no lip lesion, mucus membranes moist Cardiovascular: S1S2 reg, no murmur, positive dorsalis pedis pulse bilateral, no edema Lungs: Mild end expiratory wheezing bilaterally, no rhonchi, no rales, no accessory muscle use Abdominal: soft, nontender to palpation, no guarding Ext: muscle strength 5 out of 5 in all 4 extremities grossly, no gross muscle atrophy Neuro: CN II-XI grossly intact, no gross focal neuro deficits Psych: Alert, oriented to person, place, and time A total of greater than 30 minutes of time were spent preparing this complex discharge summary. Patient was discharge on July 29, 2024 at 11:19. Storm Reich MD PGY-1 IM I saw and evaluated the patient during the leiva and critical portions of this encounter, and discussed the case in detail with the resident author of this note, I agree with the Assessment and Plan, and my changes, if any, are highlighted in blue. Attending physician: Topher Smith MD Primary care physician: BUCK Henao Patient Condition at Discharge: Stable Plan - Discharge Summary Discharge Rx Participant: No New Discharge Prescriptions: New predniSONE [Deltasone] 40 mg PO DAILY 2 Days #4 tab Continue busPIRone HCl [Buspar] 5 mg PO TID Fluticasone/Umeclidin/Vilanter [Trelegy Ellipta 100-62.5-25] 1 puff INHALATION RT-DAILY HYDROcodone/APAP 7.5-325MG [[place] 7.5-325] 1 tab PO TID PRN PRN Reason: Pain lisinopriL [Zestril] 5 mg PO DAILY Albuterol Sulfate [Albuterol Sulfate Hfa] 2 puff INHALATION RT-Q4H Escitalopram Oxalate [Lexapro] 10 mg PO HS Metoprolol Tartrate [Lopressor] 25 mg PO DAILY Discontinued predniSONE 40 mg PO DAILY Discharge Medication List Albuterol Sulfate [Albuterol Sulfate Hfa] 2 puff INHALATION RT-Q4H 07/26/24 [History] Escitalopram Oxalate [Lexapro] 10 mg PO HS 07/26/24 [History] Fluticasone/Umeclidin/Vilanter [Trelegy Ellipta 100-62.5-25] 1 puff INHALATION RT-DAILY 07/26/24 [History] HYDROcodone/APAP 7.5-325MG [[place] 7.5-325] 1 tab PO TID PRN 07/26/24 [History] Metoprolol Tartrate [Lopressor] 25 mg PO DAILY 07/26/24 [History] busPIRone HCl [Buspar] 5 mg PO TID 07/26/24 [History] lisinopriL [Zestril] 5 mg PO DAILY 07/26/24 [History] predniSONE [Deltasone] 40 mg PO DAILY 2 Days #4 tab 07/29/24 [Rx] Follow up Appointment(s)/Referral(s): Heena Churchill FNPBC [Primary Care Provider] - 1 Week (Please call the office to schedule appointment. Not answering) Patient Instructions/Handouts: Emphysema (DC) Activity/Diet/Wound Care/Special Instructions: [facility] #[phone]; customer Please see PCP. Discharge Disposition: HOME SELF-CARE
== END 2024-07-29 13:50 | disposition home or self-care (01) | DRG 190 ==
LOC: EC 17:09 → 3SCARD 19:43 → 4SSUR 07-27 10:38
PROVIDERS: ADMIT Internal Medicine; ATTEND Internal Medicine
DX: J44.1 Chronic obstructive pulmonary disease with (acute) exacerbation (principal); I21.A1 Myocardial infarction type 2; J96.01 Acute respiratory failure with hypoxia; I11.0 Hypertensive heart disease with heart failure; I50.9 Heart failure, unspecified; D72.829 Elevated white blood cell count, unspecified; R73.9 Hyperglycemia, unspecified; F17.200 Nicotine dependence, unspecified, uncomplicated; F41.9 Anxiety disorder, unspecified; Z79.899 Other long term (current) drug therapy; Z88.6 Allergy status to analgesic agent; Z91.190 Patient's noncompliance with other medical treatment and regimen due to financial hardship
CPT/HCPCS: 36415; 71045; 80053; 83036; 83735; 83880; 84145; 84484; 85025; 85610; 85730; 93005; 93308; 94640; 94760; 99291